=== PATIENT | female | born 1975 | race Two or more races ===

== ENCOUNTER → 2018-03-23 | Outpatient (CLI) | payer OTHER ==
[2018-03-23 09:36] LABS: Basophils # (auto) 0.1 uL; Basophils % (auto) 1.3 % (0.0-2.0); Eosinophils # (auto) 0.2 uL; Eosinophils % (auto) 2.1 % (0.0-7.0); Hematocrit 41.2 % (36.0-46.0); Lymphocytes # (auto) 2.6 uL; Mean Corpuscular Hemoglobin 30.6 pg (28.0-32.0); Mean Corpuscular Hgb Conc. 33.9 g/dL (32.0-36.0); Mean Corpuscular Volume 90.3 fL (80.0-100.0); Monocytes # (auto) 0.6 uL; Monocytes % (auto) 7.5 % (0.0-12.0); Neutrophils # (auto) 4.6 uL; Neutrophils % (auto) 57.1 % (37.0-80.0); Nucleated Red Blood Cells % 0.1 %; Platelet Count (auto) 366 10^3/uL (140-450); Red Blood Cells 4.56 10^6/uL (4.0-5.20); Red Cell Distribution Width 12.9 % (11.8-14.3); White Blood Cell 8.1 10^3/uL (4.4-10.8)
[2018-03-23 11:39] LABS: Albumin 3.9 g/dL (3.4-5.0); Calcium 8.7 mg/dL (8.5-10.1); Potassium 4.2 mmol/L (3.5-5.1)
[2018-03-23 11:46] LABS: BUN/Creatinine Ratio 17.2; Bilirubin, Total 0.6 mg/dL (0.2-1.0); Total Protein 7.6 g/dL (6.4-8.2)
== END | disposition home or self-care (01) ==
LOC: LAB 09:10
PROVIDERS: ATTEND Internal Medicine
DX: Z00.00 Encounter for general adult medical examination without abnormal findings (principal)
CPT/HCPCS: 36415; 80053; 80061; 84443; 85025

== ENCOUNTER → 2020-05-29 | Outpatient (CLI) | payer OTHER ==
[2020-05-29 10:14] LABS: Basophils # (auto) 0.1 10 ^3/uL (0-0.2); Basophils % (auto) 1.3 % (0.0-2.0); Eosinophils # (auto) 0.1 10 ^3/uL (0-0.8); Eosinophils % (auto) 1.6 % (0.0-7.0); Hemoglobin 13.5 g/dL (12.2-16.2); Lymphocytes # (auto) 2.2 10 ^3/uL (0.4-5.4); Lymphocytes % (auto) 28.2 % (10.0-50.0); Mean Corpuscular Hemoglobin 30.6 pg (28.0-32.0); Mean Corpuscular Hgb Conc. 34.8 g/dL (32.0-36.0); Mean Corpuscular Volume 87.9 fL (80.0-100.0); Monocytes # (auto) 0.5 10 ^3/uL (0-1.3); Monocytes % (auto) 6.8 % (0.0-12.0); Neutrophils # (auto) 4.8 10 ^3/uL (1.6-8.6); Neutrophils % (auto) 62.1 % (37.0-80.0); Platelet Count (auto) 333 10^3/uL (140-450); Red Blood Cells 4.43 10^6/uL (4.0-5.20); Red Cell Distribution Width 12.6 % (11.8-14.3); White Blood Cell 7.7 10^3/uL (4.4-10.8)
[2020-05-29 10:46] LABS: Potassium 4.1 mmol/L (3.5-5.1)
[2020-05-29 10:54] LABS: Albumin 3.7 g/dL (3.4-5.0); BUN/Creatinine Ratio 13.6; Bilirubin, Total 0.5 mg/dL (0.2-1.0); Total Protein 7.4 g/dL (6.4-8.2)
[2020-05-29 10:55] LABS: Free T3 2.95 pg/mL (2.3-4.2); Free T4 (Free Thyroxine) 1.41 ng/dL (0.89-1.76); Leuteinizing Hormone 2.1 IU/L
[2020-05-29 10:56] LABS: Follicle Stimulating Hormone 4.75 IU/L (SEE BELOW)
== END | disposition home or self-care (01) ==
LOC: LAB 09:47
PROVIDERS: ATTEND Internal Medicine
DX: Z00.00 Encounter for general adult medical examination without abnormal findings (principal); E04.1 Nontoxic single thyroid nodule; L92.9 Granulomatous disorder of the skin and subcutaneous tissue, unspecified
CPT/HCPCS: 36415; 80053; 80061; 81025; 82670; 83001; 83002; 84439; 84443; 84481; 85025

== ENCOUNTER → 2020-09-01 | Outpatient (CLI) | payer OTHER ==
[2020-09-01 10:12] LABS: Basophils # (auto) 0.1 10 ^3/uL (0-0.2); Basophils % (auto) 1.1 % (0.0-2.0); Eosinophils # (auto) 0.1 10 ^3/uL (0-0.8); Eosinophils % (auto) 1.8 % (0.0-7.0); Hematocrit 38.2 % (36.0-46.0); Hemoglobin 13.8 g/dL (12.2-16.2); Lymphocytes # (auto) 2.2 10 ^3/uL (0.4-5.4); Mean Corpuscular Hemoglobin 31.4 pg (28.0-32.0); Mean Corpuscular Volume 87.3 fL (80.0-100.0); Monocytes # (auto) 0.4 10 ^3/uL (0-1.3); Monocytes % (auto) 6.5 % (0.0-12.0); Neutrophils # (auto) 3.7 10 ^3/uL (1.6-8.6); Neutrophils % (auto) 56.6 % (37.0-80.0); Nucleated Red Blood Cells % 0.1 %; Platelet Count (auto) 359 10^3/uL (140-450); Red Blood Cells 4.38 10^6/uL (4.0-5.20); Red Cell Distribution Width 13.2 % (11.8-14.3); White Blood Cell 6.6 10^3/uL (4.4-10.8)
[2020-09-01 11:22] LABS: Free T4 (Free Thyroxine) 1.08 ng/dL (0.89-1.76)
[2020-09-01 11:23] LABS: Follicle Stimulating Hormone 7.95 IU/L (SEE BELOW)
== END | disposition home or self-care (01) ==
LOC: LAB 10:00
PROVIDERS: ATTEND Obstetrics & Gynecology
DX: N92.6 Irregular menstruation, unspecified (principal)
CPT/HCPCS: 36415; 82670; 83001; 83002; 84439; 84443; 85025

== ENCOUNTER → 2020-11-27 | Day surgery (SDC) | payer OTHER ==
[2020-11-24 11:06] LABS: Basophils # (auto) 0.1 10 ^3/uL (0-0.2); Basophils % (auto) 1.4 % (0.0-2.0); Eosinophils # (auto) 0.1 10 ^3/uL (0-0.8); Eosinophils % (auto) 1.5 % (0.0-7.0); Hematocrit 40.5 % (36.0-46.0); Hemoglobin 14.3 g/dL (12.2-16.2); Lymphocytes # (auto) 2.3 10 ^3/uL (0.4-5.4); Lymphocytes % (auto) 35.7 % (10.0-50.0); Mean Corpuscular Hemoglobin 31.2 pg (28.0-32.0); Mean Corpuscular Hgb Conc. 35.3 g/dL (32.0-36.0); Mean Corpuscular Volume 88.2 fL (80.0-100.0); Monocytes # (auto) 0.4 10 ^3/uL (0-1.3); Monocytes % (auto) 6.3 % (0.0-12.0); Neutrophils # (auto) 3.6 10 ^3/uL (1.6-8.6); Neutrophils % (auto) 55.1 % (37.0-80.0); Red Blood Cells 4.59 10^6/uL (4.0-5.20); Red Cell Distribution Width 13.1 % (11.8-14.3); White Blood Cell 6.6 10^3/uL (4.4-10.8)
[2020-11-24 11:13] LABS: Albumin 4.4 g/dL (3.4-5.0); Calcium 9.1 mg/dL (8.5-10.1)
[2020-11-24 11:25] LABS: BUN/Creatinine Ratio 15.8; Bilirubin, Total 0.6 mg/dL (0.2-1.0); Total Protein 8.3 g/dL (6.4-8.2)
[~2020-11-27] VITALS: Ht 167.6 cm; Wt 75.7 kg
[~2020-11-27] MED LIST: DexAMETHasone SOD PHOS 10MG/1ML VIAL INJ ONE; HYDROmorphone HCL 2 MG/ML VL IV PRN; KETOROLAC TROMETH 30 MG/ML 1ML VIAL IV ONE; LABETALOL HCL 5 MG/ML 4ML SYRINGE IV PRN; LACTATED RINGER'S 1,000 ML IV SCH; MEPERIDINE HCL (50 MG/ML) 1 ML VIAL ONE; MIDAZOLAM HCL 2MG/2ML 2ml VIAL (1mg/ml) ONE; MORPHINE SULFATE 4 MG/ML SYR/VIAL IV PRN; ONDANSETRON HCL 4 MG/2 ML VIAL IV PRN; PROPOFOL 10 MG/ML 20 ML IV ONE; ceFAZolin 1GM/50ML 100 ML IV ONE; ePHEDrine SULFATE 50 MG/ML AMP IV PRN; ePHEDrine SULFATE 50 MG/ML AMP ONE; fentaNYL CITRATE 100 MCG/2 ML VL ONE
[2020-11-27 10:45] VITALS: BP 110/50
== END | disposition home or self-care (01) ==
LOC: SUR 07:29
PROVIDERS: ATTEND Obstetrics & Gynecology
DX: N93.8 Other specified abnormal uterine and vaginal bleeding (principal); Z79.899 Other long term (current) drug therapy; Z98.890 Other specified postprocedural states; Z20.822 Contact with and (suspected) exposure to COVID-19
CPT/HCPCS: 36415; 58353; 80053; 81025; 84702; 85025; 86850; 86900; 86901; 87086; J0690; J1100; J2175; J2250; J2704; J3010; U0003

== ENCOUNTER → 2022-04-08 | Outpatient (CLI) | payer OTHER ==
[2022-04-08 10:14] LABS: Basophils # (auto) 0 10 ^3/uL (0-0.2); Basophils % (auto) 0.6 % (0.0-2.0); Eosinophils # (auto) 0.1 10 ^3/uL (0-0.8); Eosinophils % (auto) 2.1 % (0.0-7.0); Hematocrit 42.1 % (36.0-46.0); Hemoglobin 14.3 g/dL (12.2-16.2); Lymphocytes # (auto) 2.2 10 ^3/uL (0.4-5.4); Mean Corpuscular Hemoglobin 30.2 pg (28.0-32.0); Mean Corpuscular Volume 88.8 fL (80.0-100.0); Monocytes # (auto) 0.5 10 ^3/uL (0-1.3); Monocytes % (auto) 7.1 % (0.0-12.0); Neutrophils % (auto) 58.2 % (37.0-80.0); Nucleated Red Blood Cells % 0.1 %; Red Blood Cells 4.74 10^6/uL (4.0-5.20); Red Cell Distribution Width 13.1 % (11.8-14.3); White Blood Cell 6.8 10^3/uL (4.4-10.8)
[2022-04-08 10:56] LABS: Calcium 8.6 mg/dL (8.5-10.1); Potassium 4.1 mmol/L (3.5-5.1)
[2022-04-08 11:00] LABS: BUN/Creatinine Ratio 14.5; Bilirubin, Total 0.6 mg/dL (0.2-1.0); Total Protein 7.5 g/dL (6.4-8.2)
[2022-04-08 11:04] LABS: Free T3 2.88 pg/mL (2.3-4.2); Free T4 (Free Thyroxine) 1.02 ng/dL (0.89-1.76)
== END | disposition home or self-care (01) ==
LOC: LAB 09:55
PROVIDERS: ATTEND Internal Medicine
DX: Z00.00 Encounter for general adult medical examination without abnormal findings (principal); L50.2 Urticaria due to cold and heat; R09.89 Other specified symptoms and signs involving the circulatory and respiratory systems
CPT/HCPCS: 36415; 80053; 80061; 84439; 84443; 84481; 85025; 85652

== ENCOUNTER → 2023-08-15 | Outpatient (CLI) | payer MEDICAID | END | disposition home or self-care (01) | LOC: XYW 07:39 | PROVIDERS: ATTEND Internal Medicine Gastroenterology | DX: K80.20 Calculus of gallbladder without cholecystitis without obstruction (principal); K29.70 Gastritis, unspecified, without bleeding; R10.9 Unspecified abdominal pain | CPT/HCPCS: 78226; A9537 ==

== ENCOUNTER → 2023-10-19 | Outpatient (CLI) | payer MEDICAID ==
[2023-10-19 09:58] LABS: Basophils # (auto) 0.2 10 ^3/uL (0-0.2); Basophils % (auto) 2.4 % (0.0-2.0); Eosinophils # (auto) 0.1 10 ^3/uL (0-0.8); Eosinophils % (auto) 1.3 % (0.0-7.0); Hematocrit 41.2 % (36.0-46.0); Hemoglobin 14.3 g/dL (12.2-16.2); Lymphocytes # (auto) 2.3 10 ^3/uL (0.4-5.4); Mean Corpuscular Hemoglobin 30.7 pg (28.0-32.0); Mean Corpuscular Hgb Conc. 34.6 g/dL (32.0-36.0); Mean Corpuscular Volume 88.6 fL (80.0-100.0); Monocytes # (auto) 0.5 10 ^3/uL (0-1.3); Monocytes % (auto) 6.2 % (0.0-12.0); Neutrophils # (auto) 5.4 10 ^3/uL (1.6-8.6); Neutrophils % (auto) 63.1 % (37.0-80.0); Red Blood Cells 4.65 10^6/uL (4.0-5.20); Red Cell Distribution Width 13.1 % (11.8-14.3); White Blood Cell 8.6 10^3/uL (4.4-10.8)
[2023-10-19 10:26] LABS: Alanine Aminotransferase 40 U/L (7-40); Alkaline Phosphatase 66 U/L (46-116); Anion Gap 8 (5-15); BUN/Creatinine Ratio 13.3 (10.0-20.0); Blood Urea Nitrogen 8 mg/dL (9-23); Calcium 9.1 mg/dL (8.7-10.4); Carbon Dioxide 24 mmol/L (20-30); Chloride 108 mmol/L (98-107); Glucose 100 mg/dL (74-106); LDL Cholesterol 129 mg/dL (< 100); Sodium 140 mmol/L (136-145); Triglycerides 63 mg/dL (< 150)
[2023-10-19 10:27] LABS: Albumin 4.4 g/dL (3.2-4.8); Aspartate Aminotransferase 20 U/L (13-40); Bilirubin, Total 0.6 mg/dL (0.2-1.0); Cholesterol 192 mg/dL (< 200); HDL Cholesterol 55 mg/dL (40-59); Total Protein 6.6 g/dL (5.7-8.2); Urine Bacteria FEW /hpf (None Seen); Urine Blood 1+ /uL (Negative); Urine Clarity Clear (Clear); Urine Color Light-Yellow (Yellow); Urine Mucus FEW (None Seen); Urine Protein, UAD TRACE (Negative); Urine Specific Gravity 1.023 (1.001-1.035); Urine Urobilinogen Normal (Negative); Urine WBC 4 /hpf (0 - 5)
== END | disposition home or self-care (01) ==
LOC: LAB 09:34
PROVIDERS: ATTEND Internal Medicine
DX: Z29.9 Encounter for prophylactic measures, unspecified (principal); R73.03 Prediabetes; E78.5 Hyperlipidemia, unspecified; Z00.00 Encounter for general adult medical examination without abnormal findings
CPT/HCPCS: 36415; 80053; 80061; 81001; 83036; 84439; 84443; 85025

== ENCOUNTER 2023-12-14 10:36 | Inpatient (IN) | payer MEDICAID ==
[~2023-12-14] VITALS: Ht 167.6 cm; Wt 90.0 kg
[2023-12-14 11:43] LABS: Basophils # (auto) 0.1 10 ^3/uL (0-0.2); Basophils % (auto) 1.4 % (0.0-2.0); Eosinophils # (auto) 0.1 10 ^3/uL (0-0.8); Eosinophils % (auto) 1.4 % (0.0-7.0); Hematocrit 42.4 % (36.0-46.0); Hemoglobin 14.9 g/dL (12.2-16.2); Lymphocytes # (auto) 2.8 10 ^3/uL (0.4-5.4); Lymphocytes % (auto) 29.9 % (10.0-50.0); Mean Corpuscular Hemoglobin 31.3 pg (28.0-32.0); Mean Corpuscular Volume 89.4 fL (80.0-100.0); Monocytes # (auto) 0.5 10 ^3/uL (0-1.3); Monocytes % (auto) 5.7 % (0.0-12.0); Neutrophils # (auto) 5.7 10 ^3/uL (1.6-8.6); Neutrophils % (auto) 61.6 % (37.0-80.0); Nucleated Red Blood Cells % 0.1 %; Platelet Count (auto) 357 10^3/uL (140-450); Red Blood Cells 4.75 10^6/uL (4.0-5.20); Red Cell Distribution Width 13.3 % (11.8-14.3); White Blood Cell 9.3 10^3/uL (4.4-10.8)
[2023-12-14 11:43] LABS: Urine Bacteria FEW /hpf (None Seen); Urine Blood 1+ /uL (Negative); Urine Clarity Turbid (Clear); Urine Color Light-Yellow (Yellow); Urine Protein, UAD Negative (Negative); Urine Specific Gravity 1.018 (1.001-1.035); Urine Urobilinogen Normal (Negative); Urine WBC 25 /hpf (0 - 5); Urine pH 5.5 (5.0-9.0)
[2023-12-14 11:51] LABS: Alanine Aminotransferase 23 U/L (7-40); Albumin 4.8 g/dL (3.2-4.8); Alkaline Phosphatase 64 U/L (46-116); Anion Gap 9 (5-15); Aspartate Aminotransferase 8 U/L (13-40); BUN/Creatinine Ratio 9.4 (10.0-20.0); Blood Urea Nitrogen 6 mg/dL (9-23); Calcium 9.3 mg/dL (8.7-10.4); Carbon Dioxide 21 mmol/L (20-31); Chloride 108 mmol/L (98-107); Glucose 92 mg/dL (74-106); Lipase 37 U/L (12-53); Potassium 3.8 mmol/L (3.5-5.1); Sodium 138 mmol/L (136-145)
[2023-12-14 11:52] LABS: Bilirubin, Total 0.7 mg/dL (0.2-1.0); Total Protein 7.5 g/dL (5.7-8.2)
[2023-12-14] MEDS: SODIUM CHLORIDE 0.9% 500 ML IVB ONE (13:26)
[2023-12-14] MEDS: cefTRIAXone 1GM/50ML D5W 50 ML IV ONE (13:43)
[2023-12-14] MEDS: MORPHINE SULFATE 4 MG/ML SYR/VIAL IV ONE (13:44)
[2023-12-14] MEDS: PANTOPRAZOLE 40 MG/10 ML VIAL INJ IV ONE (13:44)
[2023-12-14] MEDS: ONDANSETRON HCL 4 MG/2 ML VIAL IV ONE (13:44)
[2023-12-14 18:20] VITALS: PULSE 54; RESP 16; O2SAT 100
[2023-12-15 00:14] LABS: INR 1.02 (0.9-1.15); Partial Thromboplastin Time 27.2 SEC (24.5-34.5); Prothrombin Time 10.8 sec (9.3-11.8)
[2023-12-15 07:21] VITALS: PULSE 55; RESP 16; O2SAT 99
[2023-12-15] MEDS: cefTRIAXone 1GM/50ML D5W 50 ML IV SCH (07:42)
[2023-12-15] MEDS ORDERED: ACETAMINOPHEN 325 MG TAB PO PRN (07:45)
[2023-12-15 08:10] LABS: Basophils # (auto) 0.1 10 ^3/uL (0-0.2); Basophils % (auto) 0.8 % (0.0-2.0); Eosinophils # (auto) 0.2 10 ^3/uL (0-0.8); Eosinophils % (auto) 1.6 % (0.0-7.0); Hematocrit 43.1 % (36.0-46.0); Hemoglobin 15.1 g/dL (12.2-16.2); Lymphocytes # (auto) 2.9 10 ^3/uL (0.4-5.4); Mean Corpuscular Hemoglobin 31.2 pg (28.0-32.0); Mean Corpuscular Hgb Conc. 35.1 g/dL (32.0-36.0); Mean Corpuscular Volume 88.8 fL (80.0-100.0); Monocytes # (auto) 0.7 10 ^3/uL (0-1.3); Monocytes % (auto) 6.8 % (0.0-12.0); Neutrophils # (auto) 5.8 10 ^3/uL (1.6-8.6); Neutrophils % (auto) 60.8 % (37.0-80.0); Nucleated Red Blood Cells % 0.1 %; Platelet Count (auto) 332 10^3/uL (140-450); Red Blood Cells 4.85 10^6/uL (4.0-5.20); Red Cell Distribution Width 12.9 % (11.8-14.3); White Blood Cell 9.6 10^3/uL (4.4-10.8)
[2023-12-15] MEDS: MORPHINE SULFATE INJ 2 MG/ml SYRG IV PRN (08:36)
[2023-12-15] MEDS: ONDANSETRON HCL 4 MG/2 ML VIAL IV PRN (08:37)
[2023-12-15 08:40] LABS: Anion Gap 10 (5-15); Carbon Dioxide 20 mmol/L (20-31); Chloride 108 mmol/L (98-107); Potassium 4.1 mmol/L (3.5-5.1); Sodium 138 mmol/L (136-145)
[2023-12-15] MEDS: SODIUM CHLORIDE 0.9% 1,000 ML IV SCH (08:40)
[2023-12-15 08:41] LABS: Calcium 9.7 mg/dL (8.7-10.4)
[2023-12-15 08:45] LABS: Glucose 85 mg/dL (74-106)
[2023-12-15 08:46] LABS: BUN/Creatinine Ratio 9.1 (10.0-20.0); Blood Urea Nitrogen 6 mg/dL (9-23)
[2023-12-15] MEDS: ERGOCALCIFEROL 50,000 UNIT(1.25MG) CAP PO SCH (09:51)
[2023-12-15] MEDS: D5W/SOD CHL 0.45%/KCL 20MEQ 1,000 ML IV SCH (10:00)
[2023-12-15 10:32] VITALS: BP 120/61; PULSE 54; RESP 17; TEMP 98; O2SAT 97
[2023-12-15 11:04] VITALS: PULSE 54; RESP 17; O2SAT 97
[2023-12-15 13:53] LABS: Free T4 (Free Thyroxine) 1.22 ng/dL (0.89-1.76); T3 Total 0.97 ng/mL (0.60-1.81)
[2023-12-15 17:00] VITALS: BP 129/62; PULSE 79; RESP 17; TEMP 98; O2SAT 96
[2023-12-15 20:00] VITALS: PULSE 64; RESP 18; O2SAT 98
[2023-12-15 21:00] VITALS: BP 133/67; PULSE 64; RESP 18; TEMP 98.7; O2SAT 98
[2023-12-16] VITALS (8 sets, daily range): BP systolic 102–134; BP diastolic 49–72; PULSE 58–78; RESP 14–21; TEMP 97.9–98.4; O2SAT 96–99
[2023-12-16 06:26] LABS: Chloride 110 mmol/L (98-107); Potassium 4.1 mmol/L (3.5-5.1); Sodium 139 mmol/L (136-145)
[2023-12-16 06:27] LABS: Anion Gap 9 (5-15); Calcium 9.5 mg/dL (8.7-10.4); Carbon Dioxide 20 mmol/L (20-31)
[2023-12-16 06:32] LABS: Blood Urea Nitrogen 7 mg/dL (9-23); Glucose 85 mg/dL (74-106)
[2023-12-16] MEDS: LIDOCAINE W/ EPINEPHRINE 1% 20ML VIAL ONE (07:12)
[2023-12-16] MEDS: POVIDONE IODINE 10 % TOPICAL OINT 30GM TOP ONE (07:13)
[2023-12-16] MEDS: BUPIVACAINE 0.25% INJ 50ML VIAL ONE (07:13)
[2023-12-16] MEDS: cefTRIAXone SOD 1,000 MG VL ONE (07:19)
[2023-12-16] MEDS ORDERED: fentaNYL CITRATE 100 MCG/2 ML VL ONE (07:20)
[2023-12-16] MEDS ORDERED: MIDAZOLAM HCL 2MG/2ML 2ml VIAL (1mg/ml) ONE (07:20)
[2023-12-16] MEDS ORDERED: ROCURONIUM 10MG/ML 10ML VIAL IV ONE (07:21)
[2023-12-16] MEDS ORDERED: PROPOFOL 10 MG/ML 20 ML IV ONE (07:21)
[2023-12-16] MEDS ORDERED: LIDOCAINE 2% (LOCAL ANESTH.) PF 5ml SDV ONE (07:22)
[2023-12-16] MEDS ORDERED: ONDANSETRON HCL 4 MG/2 ML VIAL ONE (07:22)
[2023-12-16] MEDS ORDERED: DexAMETHasone SOD PHOS 10MG/1ML VIAL INJ ONE (07:22)
[2023-12-16] MEDS ORDERED: fentaNYL CITRATE 100 MCG/2 ML VL IV PRN (07:30)
[2023-12-16] MEDS ORDERED: MORPHINE SULFATE INJ 2 MG/ml SYRG IV PRN (07:30)
[2023-12-16] MEDS: ONDANSETRON HCL 4 MG/2 ML VIAL IV ONE (07:30)
[2023-12-16] MEDS ORDERED: SUGAMMADEX 200mg/2ml Vial (100MG/ML) IV ONE (08:28)
[2023-12-16] MEDS ORDERED: MEPERIDINE HCL (50 MG/ML) 1 ML VIAL ONE (08:44)
[2023-12-16] MEDS: PANTOPRAZOLE 40 MG/10 ML VIAL INJ IV SCH (10:12)
[2023-12-17] VITALS (7 sets, daily range): BP systolic 100–145; BP diastolic 47–79; PULSE 56–73; RESP 18–20; TEMP 36.7; O2SAT 94–98
[2023-12-17 08:13] LABS: Anion Gap 10 (5-15); Carbon Dioxide 21 mmol/L (20-31); Chloride 109 mmol/L (98-107); Potassium 4.3 mmol/L (3.5-5.1); Sodium 140 mmol/L (136-145)
[2023-12-17 08:14] LABS: Calcium 9.7 mg/dL (8.7-10.4)
[2023-12-17 08:16] LABS: Basophils # (auto) 0.1 10 ^3/uL (0-0.2); Basophils % (auto) 0.3 % (0.0-2.0); Eosinophils # (auto) 0 10 ^3/uL (0-0.8); Eosinophils % (auto) 0.1 % (0.0-7.0); Hematocrit 40.6 % (36.0-46.0); Lymphocytes # (auto) 2.6 10 ^3/uL (0.4-5.4); Lymphocytes % (auto) 14.7 % (10.0-50.0); Mean Corpuscular Hemoglobin 30.8 pg (28.0-32.0); Mean Corpuscular Hgb Conc. 34.6 g/dL (32.0-36.0); Mean Corpuscular Volume 88.9 fL (80.0-100.0); Monocytes # (auto) 1.2 10 ^3/uL (0-1.3); Monocytes % (auto) 6.6 % (0.0-12.0); Neutrophils # (auto) 13.8 10 ^3/uL (1.6-8.6); Neutrophils % (auto) 78.3 % (37.0-80.0); Platelet Count (auto) 356 10^3/uL (140-450); Red Blood Cells 4.56 10^6/uL (4.0-5.20); Red Cell Distribution Width 12.6 % (11.8-14.3); White Blood Cell 17.6 10^3/uL (4.4-10.8)
[2023-12-17 08:19] LABS: BUN/Creatinine Ratio 6.9 (10.0-20.0); Blood Urea Nitrogen 5 mg/dL (9-23); Glucose 114 mg/dL (74-106)
[2023-12-17 08:21] LABS: Bilirubin, Total 0.8 mg/dL (0.2-1.0)
[2023-12-17] MEDS ORDERED: ERGO1CAP23 PO (13:39)
[2023-12-17] MEDS ORDERED: AMOX500T86 PO (13:41)
== END 2023-12-17 16:47 | disposition home or self-care (01) | DRG 263 ==
LOC: ER 10:36 → OVERFLOW 23:26 → WEST WING 12-15 10:32
PROVIDERS: ADMIT Internal Medicine; ATTEND Internal Medicine
PROC: 0FT44ZZ Resection of Gallbladder, Percutaneous Endoscopic Approach (ICD-10-PCS; principal; 2023-12-16 07:55)
DX: K80.62 Calculus of gallbladder and bile duct with acute cholecystitis without obstruction (principal); K76.0 Fatty (change of) liver, not elsewhere classified; E03.9 Hypothyroidism, unspecified; E55.9 Vitamin D deficiency, unspecified; I10 Essential (primary) hypertension; N39.0 Urinary tract infection, site not specified; Z79.899 Other long term (current) drug therapy
CPT/HCPCS: 36415; 71045; 76705; 80048; 80053; 81001; 82247; 82306; 82607; 83690; 84439; 84443; 84480; 84702; 85025; 85610; 85730; 86850; 86900; 86901; 93005; 96374; 96375; G0378; J0696; J1100; J2003; J2250; J2405; J2470; J2704; J3490

== ENCOUNTER → 2024-01-03 | Outpatient (CLI) | payer MEDICAID ==
[~2024-01-03] MED LIST changes: +AMOX500T86 PO; -DexAMETHasone SOD PHOS 10MG/1ML VIAL INJ ONE; +ERGO1CAP23 PO; -HYDROmorphone HCL 2 MG/ML VL IV PRN; -KETOROLAC TROMETH 30 MG/ML 1ML VIAL IV ONE; -LABETALOL HCL 5 MG/ML 4ML SYRINGE IV PRN; -LACTATED RINGER'S 1,000 ML IV SCH; -MEPERIDINE HCL (50 MG/ML) 1 ML VIAL ONE; -MIDAZOLAM HCL 2MG/2ML 2ml VIAL (1mg/ml) ONE; -MORPHINE SULFATE 4 MG/ML SYR/VIAL IV PRN; -ONDANSETRON HCL 4 MG/2 ML VIAL IV PRN; -PROPOFOL 10 MG/ML 20 ML IV ONE; -ceFAZolin 1GM/50ML 100 ML IV ONE; -ePHEDrine SULFATE 50 MG/ML AMP IV PRN; -ePHEDrine SULFATE 50 MG/ML AMP ONE; -fentaNYL CITRATE 100 MCG/2 ML VL ONE
[2024-01-03 11:35] LABS: Urine Bacteria None Seen /hpf (None Seen)
[2024-01-03 12:03] LABS: Urine Blood TRACE /uL (Negative); Urine Clarity Turbid (Clear); Urine Color Light-Yellow (Yellow); Urine Mucus FEW (None Seen); Urine Protein, UAD Negative (Negative); Urine Specific Gravity 1.012 (1.001-1.035); Urine Urobilinogen Normal (Negative); Urine WBC 26 /hpf (0 - 5)
[2024-01-04 05:08] LABS: Mumps IgG Antibody 79.3 AU/mL (Immune >10.9); Rubeola IgG Antibody 83.1 AU/mL (Immune >16.4); Varicella Zoster IgG Antibody Reactive (Non Reactive)
[2024-01-04 14:41] LABS: Hepatitis B Core Total AB Negative (Negative)
[2024-01-04 15:56] LABS: Hepatitis A Total Antibody Negative (Negative); Hepatitis B Surface Antibody Negative (Negative); Hepatitis B Surface Antigen Negative (Negative); Hepatitis C Antibody Negative (Negative)
== END | disposition home or self-care (01) ==
LOC: LAB 11:20
PROVIDERS: ATTEND Internal Medicine
DX: Z00.01 Encounter for general adult medical examination with abnormal findings (principal); Z11.59 Encounter for screening for other viral diseases; R82.90 Unspecified abnormal findings in urine; R73.03 Prediabetes
CPT/HCPCS: 36415; 81001; 86704; 86706; 86708; 86735; 86762; 86765; 86787; 86803; 87340